=== PATIENT | female | born 1990 | race Hispanic/Latino ===

== ENCOUNTER 2017-04-21 19:55 | Emergency (ER) | payer SELFPAY ==
[2017-04-21 20:25] LABS: Bilirubin Negative (Negative); Blood, Urine Negative (Negative); Glucose, Urine (Dipstick) Negative (Negative); Ketone, Urine Negative (Negative); Nitrite Negative (Negative); Protein, Urine (Dipstick) Negative (Neg-Trace)
[2017-04-21] MEDS ORDERED: Ketorolac Tromethamine 60 MG/2 ML VIAL ONE ×2 (21:28→21:29)
[2017-04-21] MEDS ORDERED: Lorazepam 2 MG/ML VIAL ONE (21:28)
== END 2017-04-21 21:35 | disposition home or self-care (01) ==
LOC: ERS 19:55
DX: S29.012A Strain of muscle and tendon of back wall of thorax, initial encounter (principal); X50.0XXA Overexertion from strenuous movement or load, initial encounter; Y92.69 Other specified industrial and construction area as the place of occurrence of the external cause; Y99.0 Civilian activity done for income or pay
CPT/HCPCS: 81003; 81025; 96372; J1885; J2060

== ENCOUNTER 2017-08-14 15:37 | Outpatient (CLI) | payer BC | END 2017-08-14 15:38 | disposition home or self-care (01) | LOC: BICRAD 15:37 | PROVIDERS: ATTEND Internal Medicine | DX: R20.2 Paresthesia of skin (principal) ==

== ENCOUNTER 2017-10-30 14:39 | Emergency (ER) | payer BC ==
[2017-10-30] MEDS ORDERED: ISOVUE-370 76%-LOCM 1 ML ONE (14:50)
[2017-10-30] MEDS ORDERED: Iopamidol 370 76% 50 ML VIAL FS ONE (14:50)
[2017-10-30 16:04] LABS: Bilirubin Negative (Negative); Blood, Urine Negative (Negative); Clarity CLEAR (Clear); Glucose, Urine (Dipstick) Negative (Negative); Leukocyte Negative (Negative); Nitrite Negative (Negative); Protein, Urine (Dipstick) Negative (Neg-Trace); Specific Gravity, Urine 1.007 (1.002-1.036); Urobilinogen 0.2 mg/dL (0.2-1.0)
[2017-10-30 16:08] LABS: Pregnancy Test - Urine (BHCG) Negative (Negative); Pregu Control Background? CLEAR/WHITE (CLR/WHITE); Pregu Control Bar Appear? YES (CONTROL BAR); Specific Gravity 1.007 (1.002-1.036)
[2017-10-30] MEDS ORDERED: Ketorolac Tromethamine 30 MG/ML VIAL ONE (17:21)
[2017-10-30 17:41] LABS: #Eosinphils 0.3 thou/uL (0.0-0.7); #Lymphocytes 1.5 thou/uL (1.20-3.40); #Monocytes 0.3 thou/uL (0.11-0.59); #Neutrophils 3.8 thou/uL (1.40-6.50); %Basophils 0.5 % (0.0-1.0); %Eosinophils 5.5 % (0.0-10.0); %Lymphocytes 24.7 % (21.0-51.0); %Monocytes 4.8 % (0.0-10.0); %Neutrophils 64.5 % (42.0-75.0); Hemoglobin 13.9 g/dL (12.0-16.0); Mean Corpuscular HGB CONC 33.3 g/dL (32.0-36.0); Mean Corpuscular Hemoglobin 31.5 pg (27.0-31.0); Mean Corpuscular Volume 94.8 fl (81.0-99.0); Mean Platelet Volume 8.7 fL (7.4-10.4); Platelet Count 160 thou/uL (130-400); RBC Distribution Width 12.3 % (11.5-14.5); White Blood Cell (WBC) Count 5.9 thou/uL (4.8-10.8)
[2017-10-30 18:01] LABS: ALT (SGPT) 19 U/L (8-55); AST (SGOT) 25 U/L (5-34); Albumin 4.5 g/dL (3.5-5.0); Alkaline Phosphatase 74 U/L (40-150); Anion Gap 7 mmol/L (10-20); BUN (Urea Nitrogen) 10 mg/dL (7.0-18.7); Bilirubin, Total 0.4 mg/dL (0.2-1.2); Calc. Creatinine Clearance 0 mL/min (70-130); Calcium 9.4 mg/dL (7.8-10.44); Carbon Dioxide 30 mmol/L (22-29); Chloride 102 mmol/L (98-107); Estimated GFR-MDRD Greater than 90; Globulin 2.8 g/dL (2.4-3.5); Glucose 94 mg/dL (70-105); Lipase 10 U/L (8-78); Potassium 4.4 mmol/L (3.5-5.1); Protein, Total 7.3 g/dL (6.0-8.3); Sodium 135 mmol/L (136-145)
[2017-10-30] MEDS ORDERED: Ondansetron HCl/PF 4 MG/2 ML Vial ONE (19:13)
[2017-10-30] MEDS ORDERED: Morphine 4 MG/ML VIAL ONE (19:13)
[2017-10-30] MEDS ORDERED: Promethazine HCl 25 MG/ML VIAL ONE (19:33)
--- NOTE | 2017-10-30 19:39 | RAD ---
FRONTAL VIEW CHEST: INDICATIONS: Chest pain. COMPARISON: No prior comparisons. FINDINGS: No lobar consolidation, effusion, or pneumothorax. The cardiac silhouette is accentuated by the port able technique. IMPRESSION: No focal consolidation. POS: [facility]
--- NOTE | 2017-10-30 21:59 | CT ---
ABDOMEN CT WITH CONTRAST: PELVIS CT WITH CONTRAST: HISTORY: Acute left upper back pain while walking. Pain now radiates around the right lower quadrant and righ t upper quadrant. COMPARISON: None. TECHNIQUE: An abdomen and pelvis CT are performed with IV and oral contrast. Coronal reformatted images are sub mitted for interpretation. FINDINGS: ABDOMEN: The lung bases are clear. The heart size is normal. No pericardial effusion. The descend ing thoracic aorta and abdominal aorta have a normal caliber. No periaortic fat stranding. Symmetri c attenuation of the psoas muscles. Intrahepatic and extrahepatic portal vein is patent. The gallbladder is unremarkable. The liver, spleen, pancreas, and adrenal glands have appropriate enhancement. No gastrohepatic, retrocrural, or periportal lymphadenopathy. No mesenteric mass, lymphadenopathy, free air, or free fluid. There are a few scattered nonspecific mesenteric lymph nodes. Symmetric enhancement of the kidneys. Bilaterally, no obstructive uropathy. The gastric mucosa, the duodenum, and multiple normal caliber small bowel loops are noted. No eviden ce of bowel obstruction. The ileocecal junction is normal. Normal caliber appendix emanating from t he cecal apex. No periappendiceal inflammation. Contrast and fecal material in a nondistended/nondi lated colon. Mucosal prominence of the sigmoid colon, likely due to inadequate distention. No peric olonic inflammatory change. PELVIS: The uterus and left adnexa are unremarkable. There is a 2 cm hypodensity involving the righ t ovary, likely representing a cyst. No pelvic mass, lymphadenopathy, or significant free fluid. The central spinal canal is patent. There are no lytic or blastic lesions in the osseous structures. IMPRESSION: 1. Right ovarian cyst. 2. Normal caliber appendix. 3. No evidence of bowel obstruction. 4. No evidence of obstructive uropathy. POS: [facility]
[2017-10-30] MEDS ORDERED: Cyclobenzaprine 10 MG TAB ONE (23:12)
== END 2017-10-30 23:19 | disposition home or self-care (01) ==
LOC: ERS 14:39
DX: M54.6 Pain in thoracic spine (principal); N83.201 Unspecified ovarian cyst, right side; N15.9 Renal tubulo-interstitial disease, unspecified
CPT/HCPCS: 71045; 74177; 80053; 81003; 81025; 83690; 85025; 96374; 96375; J1885; J2270; J2405; J2550

== ENCOUNTER 2018-07-13 19:17 | Emergency (ER) | payer BC ==
[2018-07-13 19:42] LABS: #Eosinphils 0.2 thou/uL (0.0-0.7); #Lymphocytes 2.5 thou/uL (1.20-3.40); #Monocytes 0.5 thou/uL (0.11-0.59); #Neutrophils 3.5 thou/uL (1.40-6.50); %Basophils 0.4 % (0.0-1.0); %Eosinophils 2.6 % (0.0-10.0); %Lymphocytes 37.5 % (21.0-51.0); %Monocytes 6.9 % (0.0-10.0); %Neutrophils 52.6 % (42.0-75.0); Mean Corpuscular HGB CONC 33.2 g/dL (32.0-36.0); Mean Corpuscular Hemoglobin 32.6 pg (27.0-31.0); Mean Corpuscular Volume 98.2 fL (78.0-98.0); Mean Platelet Volume 9.3 fL (7.4-10.4); Platelet Count 154 thou/uL (130-400); RBC Distribution Width 11.2 % (11.5-14.5); Red Blood Cell (RBC) Count 3.99 mill/uL (4.20-5.40); White Blood Cell (WBC) Count 6.7 thou/uL (4.8-10.8)
--- NOTE | 2018-07-13 19:50 | RAD ---
PORTABLE CHEST: 07/13/18 HISTORY: Patient had tubal ligation reversal surgery yesterday. Complaining of chest pain and difficulty breat minh today. Heart size and mediastinum are within normal limits. Lungs are clear of any infiltrative process. The re is some minimal free air into the right hemidiaphragm consistent with the recent abdominal surgery . IMPRESSION: Minimal free air under the right hemidiaphragm consistent with recent surgery. POS: [facility]
[2018-07-13 20:03] LABS: ALT (SGPT) 12 U/L (8-55); AST (SGOT) 23 U/L (5-34); Albumin 4.1 g/dL (3.5-5.0); Alkaline Phosphatase 70 U/L (40-150); Anion Gap 9 mmol/L (10-20); BUN (Urea Nitrogen) 15 mg/dL (7.0-18.7); Bilirubin, Total 0.2 mg/dL (0.2-1.2); Calc. Creatinine Clearance 0 mL/min (70-130); Calcium 8.5 mg/dL (7.8-10.44); Carbon Dioxide 29 mmol/L (22-29); Chloride 105 mmol/L (98-107); Estimated GFR-MDRD 73; Globulin 2.7 g/dL (2.4-3.5); Glucose 95 mg/dL (70-105); Potassium 4.1 mmol/L (3.5-5.1); Protein, Total 6.8 g/dL (6.0-8.3); Sodium 139 mmol/L (136-145)
[2018-07-13] MEDS ORDERED: Ketorolac Tromethamine 30 MG/ML VIAL ONE (20:58)
--- NOTE | 2018-07-13 23:08 | CT ---
CT ANGIO OF CHEST PERFORMED WITH INTRAVENOUS CONTRAST ENHANCEMENT WITH 3D RECONSTRUCTIONS: 07/13/18 HISTORY: Chest pressure, shortness of breath. The lungs are clear of infiltrative process. No pulmonary nodules or pleural effusions. No significant mediastinal or hilar adenopathy. Thoracic aorta is normal in caliber. There is good pulmonary artery opacification, there is no CT evidence for pulmonary embolus. Some free air is noted within the abdomen. The patient has undergone a recent reversal of a tubal lig ation. IMPRESSION: 1. Minimal subsegmental atelectatic changes in the lung bases. 2. Free air within the abdomen consistent with recent abdominal surgery. 3. No CT evidence for pulmonary embolus. POS: [facility]
== END 2018-07-13 23:01 | disposition home or self-care (01) ==
LOC: ERS 19:17
DX: R07.81 Pleurodynia (principal)
CPT/HCPCS: 71045; 71275; 80053; 84484; 85025; 85379; 93005; 96374; J1885

== ENCOUNTER 2018-12-24 18:24 | Emergency (ER) | payer BC | END 2018-12-24 19:47 | disposition home or self-care (01) | LOC: ERS 18:24 | DX: M25.532 Pain in left wrist (principal) | CPT/HCPCS: 99283 ==

== ENCOUNTER 2019-10-04 12:41 | Outpatient (CLI) | payer BC ==
--- NOTE | 2019-10-04 14:49 | RAD ---
Hysterosalpingogram: DATE: 10/04/2019 HISTORY: 29-year-old female with irregular menstruation. Infertility. TECHNIQUE: Signed informed consent obtained. Standard sterile technique. Speculum placed into the vaginal cavity . Cervical external os swabbed with Betadine on, cotton tip applicator. Sterile HSG catheter placed through endocervical canal into endometrial cavity. Balloon inflated. Isovue injected anterior brief, intermittent fluoroscopy. Balloon deflated. Catheter and speculum were removed. Patient tolerated procedure well. No comp occasions. FINDINGS: The endometrial cavity has normal shape with smooth margins. No filling defects. Bilateral fallopian tubes have normal morphology. There is free spillage of contrast material into the peritoneal cavity bilaterally. There is a persistent filling defect in the distal most portion of the left fallo pian tube, just proximal to the free spillage. However, there is no dilation of the fallopian tubes. IMPRESSION: Bilateral fallopian tubes are patent.
[2019-10-04] MEDS ORDERED: Iopamidol 300 61% 50 ML VIAL FS ONE (15:42)
== END 2019-10-04 12:42 | disposition home or self-care (01) ==
LOC: RAD 12:41
PROVIDERS: ATTEND Obstetrics & Gynecology
DX: N92.6 Irregular menstruation, unspecified (principal)
CPT/HCPCS: 58340; 74740; Q9967

== ENCOUNTER 2019-12-05 02:29 | Emergency (ER) | payer BC ==
[2019-12-05 02:55] LABS: #Basophils 0.1 thou/uL (0.0-0.2); #Eosinphils 0.4 thou/uL (0.0-0.7); #Lymphocytes 2.3 thou/uL (1.20-3.40); #Monocytes 0.6 thou/uL (0.11-0.59); #Neutrophils 3.8 thou/uL (1.40-6.50); %Basophils 0.9 % (0.0-1.0); %Eosinophils 5.5 % (0.0-10.0); %Lymphocytes 32.1 % (21.0-51.0); %Monocytes 8.8 % (0.0-10.0); %Neutrophils 52.7 % (42.0-75.0); Hemoglobin 13.5 g/dL (12.0-16.0); Mean Corpuscular Hemoglobin 32.6 pg (27.0-31.0); Mean Corpuscular Volume 95.7 fL (78.0-98.0); Mean Platelet Volume 9.4 fL (7.4-10.4); Platelet Count 167 thou/uL (130-400); RBC Distribution Width 11.1 % (11.5-14.5); Red Blood Cell (RBC) Count 4.14 mill/uL (4.20-5.40); White Blood Cell (WBC) Count 7.2 thou/uL (4.8-10.8)
[2019-12-05 03:08] LABS: Pregnancy Test - Urine (BHCG) POSITIVE (Negative); Pregu Control Background? CLEAR/WHITE (CLR/WHITE); Pregu Control Bar Appear? YES (CONTROL BAR); Specific Gravity 1.009 (1.002-1.036)
[2019-12-05 04:05] LABS: Bilirubin Negative (Negative); Blood, Urine Negative (Negative); Clarity Clear (Clear); Glucose, Urine (Dipstick) Normal (Negative); Leukocyte Negative Leu/uL (Negative); Nitrite Negative (Negative); Protein, Urine (Dipstick) Negative (Neg-Trace); Urobilinogen Normal mg/dL (Less than 2)
== END 2019-12-05 04:27 | disposition home or self-care (01) ==
LOC: ERS 02:29
DX: O99.89 Other specified diseases and conditions complicating pregnancy, childbirth and the puerperium (principal); R10.30 Lower abdominal pain, unspecified; M54.5 Low back pain
CPT/HCPCS: 36415; 81003; 81025; 84702; 85025; 99284

== ENCOUNTER 2020-03-26 14:05 | Emergency (ER) | payer BC, OTHER ==
[2020-03-27 13:10] LABS: SARS-CoV-2 MS2 Positive; SARS-CoV-2 N Gene Positive; SARS-CoV-2 S Gene Positive; SARS-CoV-2 by NAA DETECTED (NotDetected); SARS-CoV-2 orf1ab Positive
== END 2020-03-26 14:53 | disposition home or self-care (01) ==
LOC: ERS 14:05
DX: U07.1 COVID-19 (principal)
CPT/HCPCS: 87635; 99283; U0003

== ENCOUNTER 2022-09-27 19:43 | Emergency (ER) | payer OTHER, SELFPAY ==
[2022-09-27 21:05] LABS: Bilirubin Negative (Negative); Blood, Urine Negative (Negative); Glucose, Urine (Dipstick) Negative (Negative); Ketone, Urine Trace mg/dL (Negative); Leukocyte Small (Negative); Nitrite Negative (Negative); Protein, Urine (Dipstick) Trace mg/dL (Neg-Trace); Specific Gravity, Urine 1.025 (1.005-1.030); Urobilinogen 0.2 mg/dL (Less than 2)
[2022-09-27 21:09] LABS: Clarity Hazy (Clear)
[2022-09-27 21:11] LABS: RBC/HPF 0-3 HPF (0-3)
[2022-09-27 21:12] LABS: BHCG - Serum Negative (NEGATIVE); Pregs Control Background? CLEAR/WHITE (CLR/WHITE); Pregs Control Bar Appear? YES (CONTROL BAR)
[2022-09-27 21:12] LABS: Bacteria/HPF 3+ HPF (None Seen)
[2022-09-27 21:13] LABS: Other Microscopic Description Less than 2 mL rec'd
[2022-09-27 21:18] LABS: #Eosinphils 0.2 thou/uL (0.0-0.7); #Lymphocytes 1.4 thou/uL (1.20-3.40); #Monocytes 0.4 thou/uL (0.11-0.59); #Neutrophils 9.3 thou/uL (1.40-6.50); %Basophils 0.1 % (0.0-1.0); %Eosinophils 1.7 % (0.0-10.0); %Lymphocytes 12.6 % (21.0-51.0); %Monocytes 3.9 % (0.0-10.0); %Neutrophils 81.6 % (42.0-75.0); Hemoglobin 11.7 g/dL (12.0-16.0); Mean Corpuscular HGB CONC 31.3 g/dL (32.0-36.0); Mean Corpuscular Hemoglobin 22.1 pg (27.0-31.0); Mean Corpuscular Volume 70.7 fl (78.0-98.0); Mean Platelet Volume 6.5 fL (7.4-10.4); Platelet Count 162 10x3/uL (130-400); RBC Distribution Width 18.7 % (11.5-14.5); Red Blood Cell (RBC) Count 5.27 mill/uL (4.20-5.40); White Blood Cell (WBC) Count 11.4 10x3/uL (4.8-10.8)
[2022-09-27 21:30] LABS: ALT (SGPT) 39 U/L (8-55); AST (SGOT) 34 U/L (5-34); Albumin 4.5 g/dL (3.5-5.0); Alkaline Phosphatase 95 U/L (40-110); Anion Gap 14 mmol/L (10-20); BUN (Urea Nitrogen) 15 mg/dL (7.0-18.7); Bilirubin, Total 0.4 mg/dL (0.2-1.2); Calc. Creatinine Clearance 0 mL/min (70-130); Carbon Dioxide 22 mmol/L (22-29); Chloride 102 mmol/L (98-107); Estimated GFR 88; Globulin 3.1 g/dL (2.4-3.5); Glucose 181 mg/dL (70-105); Lipase 6 U/L (8-78); Potassium 4.4 mmol/L (3.5-5.1); Protein, Total 7.6 g/dL (6.0-8.3); Sodium 134 mmol/L (136-145)
[2022-09-27] MEDS ORDERED: Milk Of Magnesia 30 ML UDCUP ONE (23:15)
[2022-09-27] MEDS ORDERED: Mag-Al 1200 mg/1200 mg/30 ML UDCUP ONE (23:16)
== END 2022-09-27 23:46 | disposition home or self-care (01) ==
LOC: ERS 19:43
DX: R12 Heartburn (principal)
CPT/HCPCS: 36415; 80053; 81003; 81015; 83690; 84703; 85025; 87086; 99283